=== PATIENT | female | born 1950 | race Caucasian/White ===

== ENCOUNTER 2017-11-27 07:11 | Day surgery (SDC) | payer BC, MEDICARE ==
[2017-11-27] MEDS ORDERED: Lactated Ringers 1,000 ML IV SCH (07:15)
[2017-11-27] MEDS ORDERED: Propofol 200 MG/20 ML SDV IV ONE (08:35)
[2017-11-27] MEDS ORDERED: Midazolam 1 MG/ML 2 ML SDV IV ONE (08:35)
--- NOTE | 2017-11-27 09:01 | PCM.OPNOTE ---
- General Post-Op/Procedure Note Date of Surgery/Procedure: 11/27/17 Operative Procedure(s): egd with bx Findings: gastroduodenitis esophagitis esophageal stricture Pre Op Diagnosis: dysphagia Post-Op Diagnosis: gastroduodenitis. esophagitis. esophageal stricture Anesthesia Technique: [facility] – [place] Primary Surgeon: Alex Toledo Anesthesia Provider: Julian Chowdhury Pathology: stomach duodenum distal esophagus Complications: None Condition: Good Free Text/Narrative:: see dictation
--- NOTE | 2017-11-27 09:20 | OR ---
DATE OF OPERATION: 11/27/2017 SURGEON: Alex Toledo MD PROCEDURE PERFORMED: EGD with cold forceps biopsy. PREOPERATIVE DIAGNOSES: History of dysphagia as well as gastroesophageal reflux disease. POSTOPERATIVE DIAGNOSES: Gastroduodenitis, esophagitis, and esophageal narrowing. INDICATIONS FOR PROCEDURE: This is a 67-year-old white female who presents with the above-mentioned complaints. She was offered and accepted an EGD. DESCRIPTION OF PROCEDURE: After an excellent IV sedation was administered, the bite block was inserted. The flexible endoscope was passed without difficulty down the patient's esophagus and into the stomach. The stomach was insufflated. Scope was passed through the pylorus, to the second portion of the duodenum, and then slowly withdrawn. The following findings were noted. First portion of the duodenum demonstrated some inflammation. Biopsies were taken. Stomach inflammation was noted. Biopsies were taken. A small hiatal hernia was noted. GE junction measured at 35 cm, and there was some narrowing noted. We were able to advance the scope without difficulty through this stricture, but it did not appear to be wider than that. Circumferential biopsies were taken of the lesion. Remainder of the esophageal exam was unremarkable. Stomach was deflated. Scope was removed. The patient tolerated the procedure well and was taken to Recovery in a good condition. /[id number] /MODL
[2017-11-27] MEDS ORDERED: Ciprofloxacin 0.3% Ophth Soln 2.5 ML Bottle EYELF SCH (10:15)
== END 2017-11-27 12:16 | disposition home or self-care (01) ==
LOC: FB.SDS 07:11
PROVIDERS: ATTEND Surgery
DX: K29.80 Duodenitis without bleeding (principal); K44.9 Diaphragmatic hernia without obstruction or gangrene; K29.70 Gastritis, unspecified, without bleeding; K21.9 Gastro-esophageal reflux disease without esophagitis
CPT/HCPCS: 00731; 43239; 88305; 88313; A9270; J2250; J2704; J7120

== ENCOUNTER 2019-02-18 07:24 | Day surgery (SDC) | payer MEDICARE, BC ==
[~2019-02-18 07:24] MED LIST: Lactated Ringers 1,000 ML IV SCH; Sodium Chloride 0.9% 10 ML Syringe FLUSH PRN
[2019-02-18] MEDS ORDERED: Lactated Ringers 1,000 ML IV ONE (07:25)
[2019-02-18] MEDS ORDERED: Propofol 200 MG/20 ML SDV IV ONE (07:25)
[2019-02-18] MEDS ORDERED: Lidocaine 2% 100 MG/5 ML Syringe IVPUSH ONE (07:25)
--- NOTE | 2019-02-18 09:58 | PCM.OPNOTE ---
- General Post-Op/Procedure Note Date of Surgery/Procedure: 02/18/19 Operative Procedure(s): egd with bx. c scope Findings: esophageal stricture esophagitis diverticula of the colon Pre Op Diagnosis: dysphagia. need for c scope. Post-Op Diagnosis: esophageal stricture. esophagitis. . diverticula of the colon Anesthesia Technique: [facility] [place] Primary Surgeon: Alex Toledo Anesthesia Provider: Luc Gamino Pathology: esophagus Complications: None Condition: Good Free Text/Narrative:: see dictation
--- NOTE | 2019-02-18 10:42 | OR ---
DATE OF OPERATION: 02/18/2019 SURGEON: Alex Toledo MD PROCEDURE PERFORMED: Esophagogastroduodenoscopy with cold forceps biopsy and colonoscopy. PREOPERATIVE DIAGNOSIS: History of dysphagia and need for screening C scope. POSTOPERATIVE DIAGNOSES: Hiatal hernia, esophageal strictures, esophagitis, as well as diverticulosis of the colon. INDICATIONS FOR PROCEDURE: This is a 68-year-old white female, who has a history of erosive esophagitis in the past. She does not take proton pump inhibitors or H2 blockers for a variety of concerns. She has had some worsening dysphagia. She is also due for colonoscopy. DESCRIPTION OF OPERATION: After an excellent IV sedation was administered, the bite block was inserted. The flexible endoscope was passed without difficulty into the patient's esophagus. At approximately 30 cm, there was narrowing. We were able to pass the scope through. A hiatal hernia involving approximately 10 cm of the stomach was noted. The pylorus was not intubated. Scope was withdrawn and biopsies were taken. There was some irritation and oozing that was stirred up by the scope itself, so we elected not to do any type of dilatation. The remainder of the esophageal exam was unremarkable. Our attention was then turned to the colon. Digital rectal exam was performed. Colonoscope was then inserted and advanced to the cecum. Following findings were noted. Ascending colon, occasional diverticula. Transverse colon was unremarkable. Descending colon was unremarkable. Sigmoid and rectum was unremarkable. Colon was deflated. Scope was removed. I am going to try to put her on some short-term proton pump and division and possibly bring her back in a month for dilatation of the esophagus. If this is not amenable to her, she will need to be referred for definitive surgical intervention. /[id number] /MODL
== END 2019-02-18 10:43 | disposition home or self-care (01) ==
LOC: FB.SDS 07:24
PROVIDERS: ATTEND Surgery
DX: Z12.11 Encounter for screening for malignant neoplasm of colon (principal); K57.30 Diverticulosis of large intestine without perforation or abscess without bleeding; K22.10 Ulcer of esophagus without bleeding; K22.2 Esophageal obstruction; K21.0 Gastro-esophageal reflux disease with esophagitis; K44.9 Diaphragmatic hernia without obstruction or gangrene; F41.9 Anxiety disorder, unspecified; F32.9 Major depressive disorder, single episode, unspecified; M19.90 Unspecified osteoarthritis, unspecified site; M81.0 Age-related osteoporosis without current pathological fracture; Z79.899 Other long term (current) drug therapy
CPT/HCPCS: 00813; 43239; 88305; 88313; G0121; J2001; J2704; J7120